=== PATIENT | male | born 1975 | race Caucasian/White ===

== ENCOUNTER → 2016-09-01 | Outpatient (CLI) | payer BC ==
[2016-09-01 17:09] LABS: HEMOGLOBIN 14.3 gm/dl (14.0-17.5); RED BLOOD COUNT 5.58 M/UL (4.20-5.50); WHITE BLOOD COUNT 8.3 K/UL (4.5-11.0)
[2016-09-01 17:29] LABS: BUN/CREATININE RATIO 15 (0-10)
== END ==
LOC: LAB 15:47
PROVIDERS: Family Medicine
DX: Z13.1 Encounter for screening for diabetes mellitus (principal); E66.9 Obesity, unspecified; I10 Essential (primary) hypertension; E03.9 Hypothyroidism, unspecified; Z79.899 Other long term (current) drug therapy
CPT/HCPCS: 36415; 80053; 83036; 84402; 84403; 84443; 85025

== ENCOUNTER → 2020-07-16 | Outpatient (CLI) | payer BC ==
[~2020-07-16] MED LIST: ANDRODERM1 EAC1 CLAR; ASPIRIN 325MG325 MG PO; ASPIRIN CHEWABL81 MG PO; BENTYL 20MG TAB20 MG PO; ECOTRIN81 MG PO; HYDROCHLOROTHIA25 MG PO; IMDUR ER TAB 3030 MG PO; IMDUR ER TAB 6060 MG PO; K-DUR TAB 20 M20 MEQ PO; KCL 10 MEQ20 MEQ/100 PO; LIPITOR TAB 2020 MG PO; LODINE CAP 300300 MG PO; PRINIVIL5 MG PO; PROTONIX40 MG PO; SYNTHROID200 MCG PO; SYNTHROID25 MCG PO; TENORMIN 25 MG25 MG PO; ZOFRAN ODT 4 MG4 MG SL
[2020-07-16 08:24] LABS: HEMOGLOBIN 16.4 gm/dl (14.0-17.5); RED BLOOD COUNT 5.14 M/UL (4.20-5.50); WHITE BLOOD COUNT 7.1 K/UL (4.5-11.0)
[2020-07-16 08:47] LABS: BUN/CREATININE RATIO 11 (0-10)
[2020-07-17 08:15] LABS: LDL CHOL. (DIRECT) 80 mg/dL (0-99); PROLACTIN 16.7 ng/mL (4.0-15.2)
[2020-07-19 02:07] LABS: TESTOSTERONE, SERUM 425 ng/dL (264-916)
== END ==
LOC: LAB 07:18
PROVIDERS: Family Medicine
DX: D75.1 Secondary polycythemia (principal); E03.9 Hypothyroidism, unspecified; E34.9 Endocrine disorder, unspecified; E66.01 Morbid (severe) obesity due to excess calories; R73.03 Prediabetes; Z79.899 Other long term (current) drug therapy; M19.90 Unspecified osteoarthritis, unspecified site
CPT/HCPCS: 36415; 80053; 80061; 82550; 82607; 82728; 83036; 83540; 83550; 83735; 84146; 84402; 84403; 84439; 84443; 84550; 85025; 85652